=== PATIENT | male | born 1990 | race Caucasian/White ===

== ENCOUNTER 2019-10-16 09:53 | Outpatient (CLI) | payer SELFPAY ==
[2019-10-17 09:49] LABS: HIV-1/2 Ag & Ab Screen Negative (Negative)
[2019-10-17 10:01] LABS: Hepatitis C Ab w Rflx HCV PCR Negative (Negative)
[2019-10-17 11:56] LABS: Syphilis Serology (RPR) Negative (Negative)
[2019-10-18 00:06] LABS: HSV 1 PCR, Blood Negative (Negative); HSV 2 PCR, Blood Negative (Negative)
== END 2019-10-16 10:13 ==
PROVIDERS: PCP Nurse Practitioner Family; Visit Provider Nurse Practitioner Family
DX: Z20.2 Contact with and (suspected) exposure to infections with a predominantly sexual mode of transmission (principal); Z11.4 Encounter for screening for human immunodeficiency virus [HIV]; Z11.59 Encounter for screening for other viral diseases
CPT/HCPCS: 36415; 86803; 87389; 87529; 86592

== ENCOUNTER 2019-10-17 07:55 | Outpatient (REF) | payer SELFPAY ==
[2019-10-18 12:16] LABS: GC Result Negative (Negative)
[2019-10-18 16:12] LABS: Chlamydia Result Positive (Negative)
== END 2019-10-17 08:15 ==
LOC: LBN 07:55
PROVIDERS: PCP Nurse Practitioner Family; Visit Provider Nurse Practitioner Family
DX: Z20.2 Contact with and (suspected) exposure to infections with a predominantly sexual mode of transmission (principal); Z11.3 Encounter for screening for infections with a predominantly sexual mode of transmission
CPT/HCPCS: 87491; 87591

== ENCOUNTER 2021-03-05 18:44 | Outpatient (REF) | payer OTHER, SELFPAY ==
--- NOTE | 2021-03-05 18:54 | DI.RAD_ITS ---
Exam(s) XR FINGER LT INDEX EXAM: XR FINGER LT INDEX CLINICAL HISTORY: crushed left index finger r/o fx. TECHNIQUE: 2D digital imaging was performed. COMPARISON: None. FINDINGS: BONES: No acute fracture is present. No bony destructive lesion is seen. JOINTS: No dislocation present. SOFT TISSUE: Gauze overlying distal index finger. No foreign body. IMPRESSION: No evidence of acute fracture, dislocation, or subluxation. DATA REPOSITORY: RADIATION DOSE DELIVERED:
--- NOTE | 2021-03-05 18:59 | DI.VRAD_ITS ---
PROCEDURE INFORMATION: Exam: XR Left Finger(s) Exam date and time: 03/05/2021 6:49 PM Age: 30 years old Clinical indication: Injury or trauma; Other: Crushing injury; Left; Index finger TECHNIQUE: Imaging protocol: XR Left fingers. Views: Minimum 2 views. COMPARISON: No relevant prior studies available. FINDINGS: Bones/joints: Normal. Soft tissues: Normal. IMPRESSION: No acute findings. Dictated and Authenticated by: Aleksander Guzman MD. Ordering:ARY العراقي MD
== END 2021-03-05 19:04 ==
LOC: DI 18:44
PROVIDERS: PCP Nurse Practitioner Family; Visit Provider Physician Assistant
DX: S67.191A Crushing injury of left index finger, initial encounter (principal); M79.645 Pain in left finger(s)
CPT/HCPCS: 73140

== ENCOUNTER 2023-02-11 08:51 | Outpatient (CLI) | payer SELFPAY ==
[2023-02-11 13:12] LABS: Anion Gap 7.6 mmol/L (3-11); BUN 15 mg/dL (7-18); CO2 28.4 mmol/L (21.0-32.0); CREATININE 1.1 mg/dL (0.70-1.30); Calculated LDL 114 mg/dL (<100); Chloride 103 mmol/L (98-107); Cholesterol 170 mg/dL (<200); Glucose 95 mg/dL (74-106); HDL Cholesterol 43 mg/dL (40-60); Potassium 4.2 mmol/L (3.5-5.1); Sodium 139 mmol/L (136-145); TSH (W/Ref FT4) 2.26 uIU/mL (0.36-3.74); Triglyceride 65 mg/dL (<150)
[2023-02-11 13:37] LABS: Hemoglobin A1C 5.2 % (<5.7)
== END 2023-02-11 08:52 | disposition home or self-care (01) ==
LOC: LOS 08:54
PROVIDERS: PCP Nurse Practitioner Family; Visit Provider Nurse Practitioner Family
DX: Z00.00 Encounter for general adult medical examination without abnormal findings (principal)
CPT/HCPCS: 36415; 80048; 80061; 83036; 84443

== ENCOUNTER 2023-02-11 13:12 | Outpatient (REF) | payer SELFPAY ==
[2023-02-12 14:28] LABS: Chlamydia Result Negative (Negative); GC Result Negative (Negative)
== END 2023-02-11 13:13 | disposition home or self-care (01) ==
LOC: LBN 13:12
PROVIDERS: PCP Nurse Practitioner Family; Visit Provider Nurse Practitioner Family
DX: Z00.00 Encounter for general adult medical examination without abnormal findings (principal); Z11.3 Encounter for screening for infections with a predominantly sexual mode of transmission
CPT/HCPCS: 87491; 87591

== ENCOUNTER 2023-09-15 18:07 | Outpatient (REF) | payer SELFPAY | END 2023-09-15 18:08 | disposition home or self-care (01) | LOC: LBN 18:07 | PROVIDERS: PCP Nurse Practitioner Family; Visit Provider Physician Assistant | DX: J02.9 Acute pharyngitis, unspecified (principal) | CPT/HCPCS: 87070 ==